=== PATIENT | male | born 1960 | race Caucasian/White ===

== ENCOUNTER 2016-08-26 12:58 | Emergency (ER) | payer BC ==
[2016-08-26 15:32] VITALS: BP 133/74
--- NOTE | 2016-08-26 15:48 | UC ---
Respiratory Complaint HPI - HPI Summary HPI Summary: URI for 1 week. Drippy nose. Irritating cough. No vomiting, no fever. Mild malaise, body aches. 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 Nonsmoker. NO asthma - History of Current Complaint Chief Complaint: UCGeneralIllness Stated Complaint: COUGH,SINUS Time Seen by Provider: 08/26/16 15:36 Hx Obtained From: Patient Onset/Duration: Gradual Onset Timing: Constant Severity Initially: Mild Severity Currently: Mild Character: Cough: Nonproductive Associated Signs And Symptoms: Positive: URI, Nasal Congestion, Hoarseness - Risk Factors Pulmonary Embolism Risk Factors: Negative Cardiac Risk Factors: Negative Pseudomonas Risk Factors: Negative Tuberculosis Risk Factors: Negative - Allergies/Home Medications Allergies/Adverse Reactions: Allergies Allergy/AdvReac Type Severity Reaction Status Date / Time No Known Allergies Allergy Verified 08/26/16 15:24 Home Medications: Home Medications Multivitamins/Minerals TAB* [Thera M Plus TAB*] 1 tab PO DAILY 08/26/16 [ History Confirmed 08/26/16] glipiZIDE TAB* [Glucotrol TAB*] 2.5 mg PO DAILY 08/26/16 [History Confirmed 11/06] metFORMIN* [Glucophage*] 500 mg PO DAILY 08/26/16 [History Confirmed 08/26/16] PMH/Surg Hx/FS Hx/Imm Hx Endocrine History Of: Reports: Diabetes Cardiovascular History Of: Reports: Hypertension Denies: Cardiac Disorders Respiratory History Of: Denies: Asthma - Surgical History Surgical History: Yes Surgery Procedure, Year, and Place: appendectomy - Family History Known Family History: Positive: Hypertension - Social History Occupation: Employed Full-time - business analytics analyst Alcohol Use: Occasionally Substance Use Type: None Smoking Status (MU): Former Smoker Type: Cigarettes When Did the Patient Quit Smoking/Using Tobacco: 13 years ago - Immunization History Most Recent Influenza Vaccination: never Review of Systems Constitutional: Negative Skin: Negative Eyes: Negative ENT: Nasal Discharge Respiratory: Cough Cardiovascular: Negative Gastrointestinal: Negative Genitourinary: Negative Motor: Negative Neurovascular: Negative Musculoskeletal: Negative Neurological: Negative Psychological: Negative All Other Systems Reviewed And Are Negative: Yes Physical Exam Triage Information Reviewed: Yes Appearance: Well-Appearing, No Pain Distress, Well-Nourished Vital Signs: Initial Vital Signs Temp 98.8 F 08/26/16 15:27 Pulse 93 08/26/16 15:27 Resp 16 08/26/16 15:27 BP 133/74 08/26/16 15:27 Pulse Ox 98 08/26/16 15:27 Eye Exam: Normal Eyes: Positive: Conjunctiva Clear ENT: Positive: Pharynx normal, Nasal congestion, TMs normal, Muffled/hoarse voice - hoarse. Negative: Tonsillar swelling, Tonsillar exudate, Trismus Neck exam: Normal Respiratory Exam: Normal Cardiovascular Exam: Normal Musculoskeletal Exam: Normal Neurological Exam: Normal Psychological Exam: Normal Skin Exam: Normal UC Diagnostic Evaluation - Laboratory O2 Sat by Pulse Oximetry: 98 Respiratory Course/Dx - Differential Dx/Diagnosis Differential Diagnosis/HQI/PQRI: Bronchitis, Lower Resp Infection Provider Diagnoses: URI Discharge - Discharge Plan Condition: Stable Disposition: HOME Prescriptions: Benzonatate CAP* [Tessalon CAP*] 100 mg PO TID #20 cap Guaifenesin-Codeine [Cheratussin AC] 1 - 2 teasp PO Q6HR PRN #120 ml MDD 30ml PRN Reason: Cough Pseudoephedrine HCl [Sudafed 12 Hour] 120 mg PO BID PRN #20 tab PRN Reason: Congestion Patient Education Materials: Upper Respiratory Infection (ED) Referrals: Promise Ray MD [Primary Care Provider] -
== END 2016-08-26 16:11 | disposition home or self-care (01) ==
LOC: UCCORT 12:58
DX: J06.9 Acute upper respiratory infection, unspecified (principal); R09.81 Nasal congestion; E11.9 Type 2 diabetes mellitus without complications; I10 Essential (primary) hypertension; Z87.891 Personal history of nicotine dependence
CPT/HCPCS: 99212; G0463